=== PATIENT | male | born 1990 | race Caucasian/White ===

== ENCOUNTER 2018-02-07 21:06 | Emergency (ER) | payer OTHER ==
[2018-02-07] MEDS ORDERED: ONDANSETRON DISINTEGRATING 4 MG TAB PO ONE (21:37)
[2018-02-07] MEDS ORDERED: HYDROCODONE/APAP 5/325 TAB PO ONE (21:37)
--- NOTE | 2018-02-07 21:38 | EDPHY ---
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 No loss of consciousness but severe headache and nausea and vomiting and blurred vision. Currently still has an 8 or 9/10 headache. Nausea but only vomited once. Vision back to normal. Not associated with neck pain or weakness or numbness in extremities or ataxia. Does not have dizziness or vertigo. Headache does not radiate. REVIEW OF SYSTEMS: Eye: no change in vision ENT: no sore throat Cardiac: no chest pain or syncope Pulmonary: no cough or SOB Abdomen: No abdominal pain Musculoskeletal: no back pain Skin: no rash Neuro: HPI Constitutional: no fever : no urinary symptoms A comprehensive 10 point review of systems is otherwise negative aside from elements mentioned in the history of present illness. 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 Eyes: No scleral icterus. Pupils equal and reactive extraocular motion intact and no hemotympanum. ENT, Mouth: Normal mucous membranes. Respiratory: Normal respiratory effort, breath sounds equal, lungs are clear to auscultation. Cardiovascular: Regular rate and rhythm. Gastrointestinal: Abdomen is soft and non tender. Neurological: Alert, face symmetric, normal motor and sensory in extremities. Normal [id number] bilaterally, no pronator drift, speech fluent. Skin: Warm and dry, no rashes. Musculoskeletal: No midline spinal tenderness. Psychiatric: Not agitated. Emergency Department course/MDM: Zofran ODT 4 mg and [address] for head injury with vomiting and severe headache. Discussed and consented. 2208: Results discussed with the patient and his girlfriend. Warned no work until cleared by work comp clinic, he should see them tomorrow. Cervical spine cleared clinically. Smoking Status: Current some day smoker Constitutional: Initial Vital Signs Temperature (C) 36.6 C 02/07/18 21: Heart Rate 76 02/07/18 21: Respiratory Rate 18 02/07/18 21: Blood Pressure 134/82 H 02/07/18 21:09 O2 Sat (%) 99 02/07/18 21:09 O2 Delivery Mode Room Air Allergies/Adverse Reactions: No Known Allergies Allergy (Unverified 02/07/18 21:08) Medical Decision Making - Diagnostics Imaging Results: Negative head CT per Dr. Dedrick Escalera. Imaging: Discussed imaging studies w/ lens inserter Radiologist Differential Diagnosis: Differential diagnosis considered for head injury including but not limited to concussion, skull fracture, intraparenchymal contusion, subarachnoid, subdural and epidural hematoma. - Data Points Medications Given: Discontinued Medications Hydrocodone Bitart/Acetaminophen (Connelly 5/325) 1 tab PO EDNOW ONE Stop: 02/07/18 21:38 Last Admin: 02/07/18 21:49 Dose: 1 tab Ondansetron HCl (Zofran Odt) 4 mg PO EDNOW ONE Stop: 02/07/18 21:38 Last Admin: 02/07/18 21:49 Dose: 4 mg Departure - Departure Disposition: Home, Routine, Self-Care Clinical Impression: Concussion Qualifiers: Encounter type: initial encounter Loss of consciousness presence/duration: without LOC Qualified Code(s): S06.0X0A - Concussion without loss of consciousness, initial encounter Condition: Good Instructions: Concussion (ED) Additional Instructions: Oral ibuprofen 600 mg every 8 hr as needed for the next 3-4 days. No work until cleared by work comp clinic; please see them tomorrow. Referrals: Work Comp Ref/Restrictions [Outside] - 1 day without fail (Follow-up work comp tomorrow, no return to work until cleared by work comp clinic.)
[2018-02-07 22:18] VITALS: BP 126/73; PULSE 70; RESP 16; TEMP 98.2; O2SAT 96
== END 2018-02-07 22:19 | disposition home or self-care (01) ==
DX: S06.0X0A Concussion without loss of consciousness, initial encounter (principal); F17.200 Nicotine dependence, unspecified, uncomplicated; W20.8XXA Other cause of strike by thrown, projected or falling object, initial encounter; Y99.8 Other external cause status